=== PATIENT | female | born 1945 | race Caucasian/White ===

== ENCOUNTER 2017-10-28 14:17 | Emergency (ER) | END 2017-10-28 17:48 | disposition home or self-care (01) ==

== ENCOUNTER 2017-11-14 03:15 | Emergency (ER) | END 2017-11-14 08:27 | disposition home or self-care (01) ==

== ENCOUNTER 2017-11-24 05:24 | Observation (INO) | END 2017-11-26 14:05 | disposition home or self-care (01) ==